=== PATIENT | female | born 1950 | race Caucasian/White ===

== ENCOUNTER 2016-07-25 20:26 | Emergency (ER) | payer OTHER ==
[2016-07-25 20:27] VITALS: BMI 32.9
[2016-07-25 20:40] VITALS: BP 143/83; PULSE 79; RESP 16; TEMP 97.5; O2SAT 99
--- NOTE | 2016-07-25 21:10 | ED PDOC ---
Lower Extremity Pain/Injury Time Seen by Provider: 07/25/16 21:03 Chief Complaint (Nursing): Lower Extremity Problem/Injury Chief Complaint (Provider): Left knee pain History Per: Patient History/Exam Limitations: no limitations Onset/Duration Of Symptoms: Persistent (3 weeks ) Current Symptoms Are (Timing): Still Present Severity: Moderate Additional Complaint(s): Zulay Johnson is a 65 y/o female presenting to the ER on 07/25/2016 with complaints of persistent left knee pain x3 weeks. Patient has not taken any pain medications since onset of symptoms. Patient is able to ambulate but has pain when doing so. She denies recent travel, denies any fall or trauma. Patient rates current pain is 6 out of 10. Past Medical History Reviewed: Historical Data, Nursing Documentation, Vital Signs Vital Signs: Last Vital Signs Temp 97.5 F L 07/25/16 20:34 Pulse 79 07/25/16 20:34 Resp 16 07/25/16 20:34 BP 143/83 07/25/16 20:34 Pulse Ox 99 07/25/16 20:34 - Medical History PMH: HTN - Surgical History Other surgeries: tubal ligation - Family History Family History: States: No Known Family Hx - Living Arrangements Living Arrangements: With Family - Social History Current smoker - smoking cessation education provided: No Alcohol: None Drugs: Denies - Home Medications Home Medications: Ambulatory Orders Medication Instructions Recorded Ciprofloxacin HCl [Cipro] 500 mg PO BID #14 tablet 03/25/16 Dicyclomine [Bentyl] 20 mg PO Q8 PRN #14 tab 03/25/16 metroNIDAZOLE [Flagyl] 500 mg PO BID #14 tab 03/25/16 Ibuprofen [Motrin Tab] 800 mg PO Q8 PRN #20 tab 07/25/16 - Allergies Allergies/Adverse Reactions: Allergies Allergy/AdvReac Type Severity Reaction Status Date / Time No Known Allergies Allergy Verified 07/25/16 20:34 Wells Criteria for PE - Wells Criteria for Pulmonary Embolism Clinical Signs and Symptoms of DVT: No P.E is #1 Diagnosis, or Equally Likely: No Heart Rate >100: No Immobilization at least 3 days;Surgery previous 4 weeks: No Previous, objectively diagnosed PE or DVT: No Hemoptysis: No Malignancy w/treatment within 6 months, or palliative: No Total Score: 0 Review of Systems ROS Statement: Except As Marked, All Systems Reviewed And Found Negative Constitutional: Negative for: Fever Musculoskeletal: Positive for: Leg Pain ((+) left knee ) Neurological: Negative for: Weakness, Numbness Physical Exam - Reviewed Nursing Documentation Reviewed: Yes Vital Signs Reviewed: Yes - Physical Exam Appears: Positive for: Well, Non-toxic, No Acute Distress Head Exam: Positive for: ATRAUMATIC, NORMOCEPHALIC Skin: Positive for: Normal Color. Negative for: Rash Eye Exam: Positive for: Normal appearance Extremity: Positive for: Normal ROM ((+) full ROM left knee w/ pain ), Swelling ((+) left knee patellar region) Neurologic/Psych: Positive for: Alert, Oriented, Gait (steady ). Negative for: Motor/Sensory Deficits - ECG O2 Sat by Pulse Oximetry: 99 Pulse Ox Interpretation: Normal - Other Rad Left knee x-ray X-Ray: Interpreted by Me, Viewed By Me X-Ray Interpretation: no fx, no dis, degenerative changes Medical Decision Making Medical Decision Makin:03 Initial Impression- 65 y/o with left knee pain Initial Plan- * Ibuprofen 600 mg PO * XR Left Knee * Re-evaluate Rx motrin given along with referral to ortho dictaphone technician. Brace to knee declined. Documented by Monet Mata, acting as a scribe for Evelina Boyd PA-C All medical record entries made by the Scribe were at my direction and personally dictated by me. I have reviewed the chart and agree that the record accurately reflects my personal performance of the history, physical exam, medical decision making, and the department course for this patient. I have also personally directed, reviewed, and agree with the discharge instructions and disposition. Disposition - Clinical Impression Clinical Impression: Knee pain - Patient ED Disposition Is Patient to be Admitted: No Counseled Patient/Family Regarding: Studies Performed, Diagnosis, Need For Followup, Rx Given - Disposition Referrals: Anisa Aguirre MD [Staff Provider] - Disposition: Routine/Home Disposition Time: 22:08 Condition: STABLE Additional Instructions: Ice, rest and elevate affected area. Take rx meds as directed as needed for pain. Follow up with orthopedist in 2-3 days. Prescriptions: Ibuprofen [Motrin Tab] 800 mg PO Q8 PRN #20 tab PRN Reason: Pain, Moderate (4-7) Instructions: Arthralgia (ED), Knee Pain (ED) Print Language: ENGLISH
--- NOTE | 2016-07-26 09:42 | RAD ---
PROCEDURE: Left Knee Radiographs. HISTORY: Pain. COMPARISON: None. FINDINGS: BONES: Normal. No fracture. JOINTS: Mild osteoarthritic changes are noted. JOINT EFFUSION: None. OTHER FINDINGS: None. IMPRESSION: Mild osteoarthritic changes.
== END 2016-07-25 22:28 | disposition home or self-care (01) ==
LOC: H.ER 20:26
DX: M25.562 Pain in left knee (principal); I10 Essential (primary) hypertension